=== PATIENT | female | born 1960 | race Caucasian/White ===

== ENCOUNTER 2023-08-12 12:46 | Emergency (ER) | payer BC ==
[~2023-08-12] VITALS: Ht 170.2 cm; Wt 55.9 kg
[2023-08-12 13:02] VITALS: TEMP 98
[2023-08-12] MEDS: HYDROmorphone 1 mg/ml syringe IV ONE (14:02)
[2023-08-12] MEDS: ondansetron/PF 4mg/2ml inj IV ONE (14:02)
[2023-08-12] MEDS: normal saline 1000ML IV soln IVB ONE (14:23)
[2023-08-12] MEDS: propofol 10mg/ml 20ml vial IV ONE (15:19)
[2023-08-12] MEDS ORDERED: NAPR-56 PO (15:47)
[2023-08-12 16:19] VITALS: BP 123/73; PULSE 47; RESP 15; O2SAT 98
== END 2023-08-12 16:22 | disposition home or self-care (01) ==
LOC: ER 12:46
DX: S43.085A Other dislocation of left shoulder joint, initial encounter (principal); X58.XXXA Exposure to other specified factors, initial encounter; Y93.89 Activity, other specified; Y92.89 Other specified places as the place of occurrence of the external cause; Y99.8 Other external cause status
CPT/HCPCS: 23650; 73020; 73030; 96361; 96374; 96375; 99152; 99285; J1170; J2405; J7030; L3650; 94760; A4565; A4620